=== PATIENT | male | born 1990 | race Caucasian/White ===

== ENCOUNTER 2021-12-10 10:51 | Emergency (ER) | payer OTHER ==
[~2021-12-10] VITALS: Ht 182.9 cm; Wt 104.3 kg
[2021-12-10] MEDS ORDERED: PROAIR HFA8.5 GM INH (12:03)
[2021-12-10] MEDS ORDERED: DOXYCYCLINE HY100 MG PO (12:03)
[2021-12-10] MEDS ORDERED: PREDNISONE20 MG PO (12:03)
[2021-12-10] MEDS ORDERED: ONDANSETRON ODT4 MG PO (12:03)
== END 2021-12-10 12:10 | disposition home or self-care (01) ==
LOC: ED 10:51
DX: U07.1 COVID-19 (principal); J40 Bronchitis, not specified as acute or chronic
CPT/HCPCS: 71045

== ENCOUNTER 2022-01-27 13:04 | Emergency (ER) | payer OTHER ==
[~2022-01-27] VITALS: Ht 182.9 cm; Wt 104.3 kg
[~2022-01-27 13:04] MED LIST: DOXYCYCLINE HY100 MG PO; ONDANSETRON ODT4 MG PO; PREDNISONE20 MG PO; PROAIR HFA8.5 GM INH
[2022-01-27] MEDS ORDERED: MEN'S MULTIVI200 MCG PO (13:29)
[2022-01-27] MEDS ORDERED: PREDNISONE20 MG PO (17:14)
== END 2022-01-27 17:23 | disposition home or self-care (01) ==
LOC: ED 13:04
DX: L50.9 Urticaria, unspecified (principal)
CPT/HCPCS: 94640; 99282; J7512; Q0163

== ENCOUNTER 2022-07-13 15:13 | Emergency (ER) | payer OTHER ==
[~2022-07-13] VITALS: Ht 182.9 cm; Wt 106.1 kg
[~2022-07-13 15:13] MED LIST changes: +MEN'S MULTIVI200 MCG PO
[2022-07-13] MEDS ORDERED: PREDNISONE20 MG PO (19:23)
== END 2022-07-13 19:44 | disposition home or self-care (01) ==
LOC: ED 15:13
DX: J98.01 Acute bronchospasm (principal); Z20.822 Contact with and (suspected) exposure to COVID-19; Z79.52 Long term (current) use of systemic steroids
CPT/HCPCS: 36415; 71045; 80053; 83735; 84484; 85025; 87502; 94640; 99285-25; C9803; J7512; U0003

== ENCOUNTER 2022-08-10 15:49 | Emergency (ER) | payer OTHER ==
[~2022-08-10] VITALS: Ht 182.9 cm; Wt 106.2 kg
--- OUTSIDE RECORDS SUMMARY | 2022-08-10 15:56 | XMS ---
PreManage Notification: [employer] Contact Worker [employer] Events No recent Security Events currently on file CRITERIA MET - [facility] - 2 Visits in 30 Days CARE PROVIDERS There are no care providers on record at this time. Mala has no Care Guidelines for this patient. [facility] MO.) [facility] NOTE: Visits indicate total known visits. ED/C VISIT TRACKING (12 MO.) [facility] COMPLAINT: - DIARRHEA 07/13/2022 15:14 [facility] TYPE: Emergency COMPLAINT: - SHORTNESS OF BREATH DIAGNOSES: - half-way (current) use of systemic steroids - Shortness of breath - Contact with and (suspected) exposure to COVID-19 - Acute bronchospasm 01/27/2022 13:06 [facility] TYPE: Emergency COMPLAINT: - BODY RASH, SOB, CHEST TIGHTENING DIAGNOSES: - Urticaria, unspecified 12/10/2021 10:52 [facility] TYPE: Emergency COMPLAINT: - COUGHING UP BLOOD DIAGNOSES: - COVID-19 - Hemoptysis - Bronchitis, not specified as acute or chronic INPATIENT VISIT TRACKING (12 MO.) No inpatient visits to display in this time frame [email or web address]
[2022-08-10] MEDS ORDERED: VENTOLIN HFA18 GM INH (16:23)
[2022-08-10] MEDS ORDERED: ONDANSETRON ODT8 MG PO (20:18)
[2022-08-10] MEDS ORDERED: TRAMADOL HCL50 MG PO (20:18)
[2022-08-10] MEDS ORDERED: LOMOTIL TABLET1 EACH PO (20:18)
[2022-08-10] MEDS ORDERED: ANUSOL-HC30 GM PR (20:18)
[2022-08-10] MEDS ORDERED: CARAFATE1 GM PO (20:18)
== END 2022-08-10 21:00 | disposition home or self-care (01) ==
LOC: ED 15:49
DX: K52.9 Noninfective gastroenteritis and colitis, unspecified (principal); I10 Essential (primary) hypertension
CPT/HCPCS: 36415; 74177; 80053; 83690; 85025; 96361; 96375; 99284-25; A9270; C9113; J2270; J2405; J7121; Q9967